=== PATIENT | female | born 1985 | race Caucasian/White ===

== ENCOUNTER 2021-01-23 09:23 | Emergency (ER) | payer MEDICAID ==
[2021-01-23] MEDS ORDERED: Lidocaine 1% 10 ML MDV INJECT ONE (09:48)
--- NOTE | 2021-01-23 10:28 | EDM.PDOC ---
ED HPI GENERAL MEDICAL PROBLEM - General Chief Complaint: Laceration Stated Complaint: HEAD LAC Time Seen by Provider: 01/23/21 09:27 Source of Information: Reports: Patient History Limitations: Reports: No Limitations - History of Present Illness INITIAL COMMENTS - FREE TEXT/NARRATIVE: 36-year-old female presents to the emergency department today with a laceration to her mid forehead just at the hairline. Nursing staff measured a laceration as 4 cm. Bleeding was controlled at the time she presented to the emergency department. She states she was getting things in and out of the back catch of her car when she came around and knocked her head on the [place]. The patient denied any loss of consciousness or dizziness associated with the event. States she is otherwise healthy. Forehead Pain Score (Numeric/FACES): 2 - Related Data Allergies Allergy/AdvReac Type Severity Reaction Status Date / Time No Known Allergies Allergy Verified 01/23/21 09:43 Home Meds: Home Meds Acetaminophen [Tylenol] 650 mg PO Q6H PRN #0 tablet 05/01/16 [Rx] Ibuprofen [IJD: Ibuprofen] 600 mg PO Q6H PRN #0 tablet 05/01/16 [Rx] Calcium Carbonate [Calcium] 600 mg PO DAILY 01/23/21 [History] Mv-Mn/Iron/FA/Herbal/Digestive [ One Tablet] 1 tab PO DAILY 01/23/21 [History] Past Medical History HEENT History: Reports: Impaired Vision Other HEENT History: wears eyeglasses. [employer] History: Reports: - Infectious Disease History Infectious Disease History: Reports: Chicken Pox, Influenza - Past Surgical History HEENT Surgical History: Reports: Tonsillectomy Social & Family History - Tobacco Use Tobacco Use Status *Q: Never Tobacco User Second Hand Smoke Exposure: No - Caffeine Use Caffeine Use: Reports: Coffee - Recreational Drug Use Recreational Drug Use: No ED ROS GENERAL - Review of Systems Review Of Systems: Comprehensive ROS is negative, except as noted in HPI. ED EXAM, SKIN/RASH Exam: See Below Exam Limited By: No Limitations General Appearance: Alert, WD/WN, No Apparent Distress Ears: Normal External Exam, Hearing Grossly Normal Nose: Normal Inspection, Normal Mucosa Throat/Mouth: Normal Inspection, Normal Lips, Normal Voice, No Airway Compromise Head: Normocephalic, Other (laceration to forehead along the hairline just right of the middle) Neck: Normal Inspection Respiratory/Chest: No Respiratory Distress, No Accessory Muscle Use Cardiovascular: Regular Rate, Rhythm GI/Abdominal: No Distention (Female) Exam: Deferred Rectal (Female) Exam: Deferred Back Exam: Normal Inspection Extremities: Normal Inspection, Normal Range of Motion Neurological: Alert, Oriented, Normal Cognition Psychiatric: Normal Affect, Normal Mood Skin: Warm, Dry, Normal Color, No Rash, Wound/Incision (4 cm laceration noted to the forehead just right of midline along the patient's hairline.) Location, Skin: Head Characteristics: Linear Associated features: Swelling Lymphatic: No Adenopathy ED SKIN PROCEDURES - Laceration/Wound Repair Right Forehead Appearance: Superficial Anesthetic Type: Local Local Anesthesia - Lidocaine (Xylocaine): 1% Plain Local Anesthetic Volume: 3cc Closed with: Sutures Lac/Wound length In cm: 4 Suture Size: 5-0 Suture Type: Nylon Course - Vital Signs Last Recorded V/S: Last Vital Signs Temp 96.3 F L 01/23/21 10:28 Pulse 73 01/23/21 10:28 Resp 18 01/23/21 10:28 BP 144/90 H 01/23/21 10:28 Pulse Ox 98 01/23/21 10:28 - Orders/Labs/Meds Meds: Medications Discontinued Medications Generic Name Dose Route Start Last Admin Trade Name Chen PRN Reason Stop Dose Admin Lidocaine HCl 10 ml 01/23/21 09:48 01/23/21 09:55 Lidocaine 1% 10 Ml Mdv INJECT 01/23/21 09:49 10 ml ONETIME ONE Administration Departure - Departure Time of Disposition: 10:25 Disposition: Home, Self-Care 01 Condition: Good Clinical Impression: Laceration of head Qualifiers: Encounter type: initial encounter Location of open wound of head: other part of head Foreign body presence: without foreign body Qualified Code(s): S01.81XA - Laceration without foreign body of other part of head, initial encounter - Discharge Information Instructions: Laceration Care, Adult, [id number] Referrals: Chaz Leiva MD [Primary Care Provider] - Forms: ED Department Discharge Additional Instructions: You were seen in the ED today with a laceration to your forehead. Laceration was repaired with 8 sutures. Wash the wound twice daily with mild soap and water and then pat dry. May apply a thin film of bacitracin to the wound after cleansing. Sutures can come out in 5 days time. Watch for any signs or symptom s of infection such as increased redness, swelling or puss draining from the wound. Should your condition worsen or change do not hesitate returning to the ED. Sepsis Event Note (ED) - Evaluation Sepsis Screening Result: No Definite Risk - Focused Exam Vital Signs: Vital Signs Temp Pulse Resp BP Pulse Ox 01/23/21 10:28 96.3 F L 73 18 144/90 H 98 01/23/21 09:25 97.6 F 100 18 159/95 H 97
[2021-01-23 10:34] VITALS: BP 144/90; PULSE 73
== END 2021-01-23 10:36 | disposition home or self-care (01) ==
LOC: JD.ED 09:23
DX: S01.81XA Laceration without foreign body of other part of head, initial encounter (principal); W22.8XXA Striking against or struck by other objects, initial encounter
CPT/HCPCS: 12002; 12013; 99282; 99282-25